=== PATIENT | male | born 1960 | race Asian ===

== ENCOUNTER 2018-03-20 13:15 | Emergency (ER) | payer OTHER ==
[~2018-03-20] VITALS: Ht 177.8 cm; Wt 104.3 kg
[2018-03-20 13:22] VITALS: TEMP 98.7
[2018-03-20] MEDS ORDERED: SPIRONOLACT25 MG PO (13:25)
[2018-03-20] MEDS ORDERED: LISI10TA11 PO (13:25)
[2018-03-20] MEDS ORDERED: FURO20TA67 PO (13:25)
[2018-03-20] MEDS ORDERED: CARV25TA PO (13:26)
[2018-03-20 13:38] LABS: PLATELET COUNT 182 K/uL (142-355)
[2018-03-20 13:50] LABS: POTASSIUM 3.6 mmol/L (3.6-5.2); SODIUM 141 mmol/L (136-145)
[2018-03-20 15:33] VITALS: BP 113/75
== END 2018-03-20 15:34 | disposition home or self-care (01) ==
LOC: ED 13:15 → EDBD 13:15 → ED 13:15
DX: R07.89 Other chest pain (principal); R91.8 Other nonspecific abnormal finding of lung field; R00.0 Tachycardia, unspecified; I50.9 Heart failure, unspecified
CPT/HCPCS: 36415; 80053; 80307; 81000; 82550; 82553; 83880; 84484; 85027; 93005; 99284; J2270